=== PATIENT | male | born 1990 | race Caucasian/White ===

== ENCOUNTER 2017-12-16 02:55 | Emergency (ER) | payer OTHER ==
[2017-12-16] MEDS ORDERED: Doxycycline 100 MG Tab PO ONE (02:56)
[2017-12-16 03:06] VITALS: BP 141/94
--- NOTE | 2017-12-18 08:36 | ER ---
DATE SEEN: 12/16/2017 REASON FOR VISIT: Nose pain. HISTORY OF PRESENT ILLNESS: This is a 27-year-old male complaining about lesions in the nose. He has noted in the last 2 weeks, they are painful, moderate to severe, and the nose is dry. He denies any headache, fever, or chills. PAST MEDICAL HISTORY: No active medical problems. ALLERGIES: Venom-honey bee, wool, and Tide. SOCIAL HISTORY: Smoker. PHYSICAL EXAMINATION: GENERAL: He is afebrile. Blood pressure 141/94. EARS, NOSE, AND THROAT: Revealed crusty lesions in the nasal mucosa. NECK: Supple. CHEST: Clear. Oropharynx is normal. IMPRESSION: Nasal infection. PLAN: Doxycycline 100 mg b.i.d. TIME SEEN: 0300 hours in the morning. /[id number] DANGELO/RADHA
== END 2017-12-16 03:20 | disposition home or self-care (01) ==
LOC: FB.ED 02:55
DX: J32.9 Chronic sinusitis, unspecified (principal); F17.200 Nicotine dependence, unspecified, uncomplicated; Z91.030 Bee allergy status; Z91.09 Other allergy status, other than to drugs and biological substances
CPT/HCPCS: 99282; A9270

== ENCOUNTER 2018-06-16 18:51 | Emergency (ER) | payer BC, OTHER ==
[2018-06-16 19:20] VITALS: BP 125/73
--- NOTE | 2018-06-16 19:23 | EDM.PDOC ---
ED HPI GENERAL MEDICAL PROBLEM - General Chief Complaint: Allergic Reaction Stated Complaint: rash Time Seen by Provider: 06/16/18 19:00 Source of Information: Reports: Patient, Family History Limitations: Reports: No Limitations - History of Present Illness INITIAL COMMENTS - FREE TEXT/NARRATIVE: Ricky comes into [facility] ED with appearance of a puritic eruption of the hands today, significance unknown. He was diagnosed with H zoster of the L lower leg about 2 weeks ago and treated with Valtrex 500 mg tid, although he was only taking the meds once daily. His leg rash has slowly dried up, leaving some debris and scaling at the site, with mild itching. Current eruption of the hands seems dry, bumpy, and more intensely itchy. In addition, a few similar papules have appear on both feet. There are no vesicular features, and the papules are not erythematous. He is not reporting any systemic sxs of headache, sore throat, swollen lymph nodes, loss of appetite, or voiding sxs. He has tried no meds. - Related Data Allergies Allergy/AdvReac Type Severity Reaction Status Date / Time venom-honey bee Allergy Hives Verified 12/16/17 03:02 [bee venom (honey bee)] tide Allergy Hives Uncoded 12/16/17 03:02 wool Allergy Hives Uncoded 12/16/17 03:02 Home Meds: Home Meds Omeprazole 20 mg PO DAILY 07/20/13 [History] Mirtazapine [Remeron] 15 mg PO BEDTIME 12/16/17 [History] Past Medical History - Past Health History Medical/Surgical History: Denies Medical/Surgical History - Past Surgical History Other Musculoskeletal Surgeries/Procedures:: knee surgery, stitches Social & Family History - Family History Family Medical History: Noncontributory - Caffeine Use Caffeine Use: Reports: Coffee, Soda ED ROS ALLERGIC REACTION - Review of Systems Review Of Systems: See Below Constitutional: Reports: No Symptoms HEENT: Reports: No Symptoms Respiratory: Reports: No Symptoms Cardiovascular: Reports: No Symptoms Endocrine: Reports: No Symptoms GI/Abdominal: Reports: No Symptoms : Reports: No Symptoms Musculoskeletal: Reports: No Symptoms Skin: Reports: Pruritis, Rash Neurological: Reports: No Symptoms Psychiatric: Reports: No Symptoms Hematologic/Lymphatic: Reports: No Symptoms Immunologic: Reports: No Symptoms ED EXAM GENERAL NO PERIP PULSE - Physical Exam Exam: See Below Exam Limited By: No Limitations General Appearance: Alert, WD/WN, No Apparent Distress Eye Exam: Bilateral Eye: EOMI, Normal Inspection, PERRL Ears: Normal External Exam Nose: Normal Inspection Throat/Mouth: Normal Inspection, Normal Lips, Normal Gums, Normal Oropharynx, Normal Voice, No Airway Compromise Head: Normocephalic Neck: Normal Inspection, Supple, Non-Tender, Full Range of Motion Respiratory/Chest: Lungs Clear, Normal Breath Sounds Cardiovascular: Regular Rate, Rhythm, No Murmur GI/Abdominal: Normal Bowel Sounds, Soft, Non-Tender, No Organomegaly, No Distention, No Mass (Male) Exam: Normal Inspection Rectal (Males) Exam: Normal Exam Back Exam: Normal Inspection Extremities: Other (papular eruption of the digits and palms, nonconfluent, without erythema; a few papules seen on the plantar surfaces of both feet) Neurological: Alert, Oriented, CN II-XII Intact, Normal Cognition, No Motor/ Sensory Deficits Psychiatric: Normal Affect, Normal Mood Skin Exam: Warm, Dry, Intact, Rash, Zoster-Like Rash (dried slightly scaling dermatoses of the L calve and L anteromedial lower leg; no ulcerations or dysesthesias) Lymphatic: No Adenopathy Course - Vital Signs Text/Narrative:: The CBC noted &% Eos with normal WBC and hemogram. The UA was neg. 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 Last Recorded V/S: Last Vital Signs Temp Pulse 89 06/16/18 19:00 Resp 16 06/16/18 19:00 BP 125/73 06/16/18 19:00 Pulse Ox 98 06/16/18 19:00 - Orders/Labs/Meds Orders: Active Orders 24 hr Category Date Time Status URINALYSIS W/MICROSCOPIC [UA W/MICROSCOPIC] [URIN] Stat Lab 06/16/18 19:20 Ordered Labs: Laboratory Tests 06/16/18 06/16/18 Range/Units 19:20 19:35 WBC 8.6 (4.5-12.0) X10-3/uL RBC 5.09 (4.30-5.75) x10(6)uL Hgb 15.1 (11.5-15.5) g/dL Hct 43.4 (30.0-51.3) % MCV 85.4 (80-96) fL MCH 29.6 (27.7-33.6) pg MCHC 34.7 (32.2-35.4) g/dL RDW 12.8 (11.5-15.5) % Plt Count 306 (125-369) X10(3)uL MPV 7.6 (7.4-10.4) fL Neut % (Auto) 59.9 (46-82) % Lymph % (Auto) 25.0 (13-37) % [place] % (Auto) 6.9 (4-12) % Eos % (Auto) 7 H (1.0-5.0) % Baso % (Auto) 1 (0-2) % Neut # (Auto) 5.2 (1.6-8.3) # Lymph # (Auto) 2.1 (0.6-5.0) # [place] # (Auto) 0.6 (0.0-1.3) # Eos # (Auto) 0.6 (0.0-0.8) # Baso # (Auto) 0.1 (0.0-0.2) # Urine Color Yellow (YELLOW) Urine Appearance Clear (CLEAR) Urine pH 5.0 (5.0-6.5) Ur Specific [place] 1.030 H (1.010-1.025) Urine Protein Trace (NEGATIVE) mg/dL Urine Glucose (UA) Normal (NEGATIVE) mg/dL Urine Ketones Negative (NEGATIVE) mg/dL Urine Occult Blood Negative (NEGATIVE) Urine Nitrite Negative (NEGATIVE) Urine Bilirubin Small H (NEGATIVE) Urine Urobilinogen 1 H (NEGATIVE) mg/dL Ur Leukocyte Esterase Negative (NEGATIVE) Urine RBC 0-5 (0) Urine WBC 0-5 (0) Ur Squamous Epith Cells Occasional (NS,R,O) Urine Bacteria Rare H (NS) Urine Mucus Many H (NS) Departure - Departure Time of Disposition: 20:05 Disposition: Home, Self-Care 01 Condition: Good Clinical Impression: Acute papular eruption of skin - Discharge Information *PRESCRIPTION DRUG MONITORING PROGRAM REVIEWED*: Not Applicable *COPY OF PRESCRIPTION DRUG MONITORING REPORT IN PATIENT KIM: Not Applicable Referrals: Cosmo Pedroza MD [Primary Care Provider] - Forms: ED Department Discharge - Problem List & Annotations (1) Acute papular eruption of skin SNOMED Code(s): 636622410 Code(s): R21 - RASH AND OTHER NONSPECIFIC SKIN ERUPTION Status: Acute Current Visit: Yes Annotation/Comment:: Probable papular urticaria, managed with antihistamines such as Zyrtec 10 mg q day. No restrictions. He can discontinue the Valtrex tabs. - Problem List Review Problem List Initiated/Reviewed/Updated: Yes - My Orders Last 24 Hours: My Active Orders 06/16/18 19:20 URINALYSIS W/MICROSCOPIC [UA W/MICROSCOPIC] [URIN] Stat - Assessment/Plan Last 24 Hours: My Active Orders 06/16/18 19:20 URINALYSIS W/MICROSCOPIC [UA W/MICROSCOPIC] [URIN] Stat Plan: Follow up with PCP if needed.
== END 2018-06-16 20:15 | disposition home or self-care (01) ==
LOC: FB.ED 18:51
DX: R21 Rash and other nonspecific skin eruption (principal); Z91.030 Bee allergy status; Z91.09 Other allergy status, other than to drugs and biological substances; Z79.899 Other long term (current) drug therapy
CPT/HCPCS: 36415; 81001; 85025; 99282

== ENCOUNTER 2022-06-03 06:20 | Emergency (ER) | payer SELFPAY ==
[2022-06-03] MEDS: Naloxone 0.4 MG/ML SDV IVPUSH ONE (06:40)
[2022-06-03] MEDS: Ondansetron 4 MG Tab.DIS PO ONE (06:47)
[2022-06-03] MEDS: Sodium Chloride 0.9% 1,000 ML IV ONE (06:55)
[2022-06-03] MEDS: Ondansetron 4 MG Tab.DIS ONE (07:06)
[2022-06-03 07:18] LABS: ESTIMATED GFR 64 mL/min (>60)
[2022-06-03 08:21] VITALS: BP 133/64; PULSE 126
== END 2022-06-03 08:15 | disposition home or self-care (01) ==
LOC: FB.ED 06:20
DX: K75.9 Inflammatory liver disease, unspecified (principal); F15.129 Other stimulant abuse with intoxication, unspecified; R51.9 Headache, unspecified; E86.0 Dehydration; R00.0 Tachycardia, unspecified; D72.829 Elevated white blood cell count, unspecified; Z91.030 Bee allergy status; Z91.048 Other nonmedicinal substance allergy status; Z79.899 Other long term (current) drug therapy
CPT/HCPCS: 36415; 80053; 80307; 85025; 96361; 96374; 99284; J2310; J7030; Q0162

== ENCOUNTER 2022-07-10 20:53 | Emergency (ER) | payer SELFPAY ==
[2022-07-10] MEDS ORDERED: Doxycycline 100 MG Tab PO ONE (21:34)
[2022-07-10 22:07] VITALS: BP 152/96; PULSE 91
== END 2022-07-10 22:30 | disposition home or self-care (01) ==
LOC: FB.ED 20:53
DX: L03.90 Cellulitis, unspecified (principal); A49.02 Methicillin resistant Staphylococcus aureus infection, unspecified site; Z91.030 Bee allergy status; Z91.048 Other nonmedicinal substance allergy status; Z72.0 Tobacco use
CPT/HCPCS: 87070; 99283; A9270

== ENCOUNTER 2023-03-05 13:27 | Emergency (ER) | payer MEDICAID ==
[2023-03-05 15:08] VITALS: BP 140/92; PULSE 96
== END 2023-03-05 14:38 | disposition home or self-care (01) ==
LOC: FB.ED 13:27
DX: S90.31XA Contusion of right foot, initial encounter (principal); Z91.030 Bee allergy status; Z91.048 Other nonmedicinal substance allergy status; W20.8XXA Other cause of strike by thrown, projected or falling object, initial encounter
CPT/HCPCS: 73630-RT; 99283

== ENCOUNTER 2024-01-11 20:10 | Emergency (ER) | payer SELFPAY ==
[2024-01-11 20:27] VITALS: BP 135/82; PULSE 74
[2024-01-11] MEDS: Cephalexin 500 MG Cap PO ONE (20:46)
[2024-01-11] MEDS: Diphtheria,Pertussis(Acell),Tetanus Vaccine 0.5 ML Syringe IM ONE (20:46)
== END 2024-01-11 21:02 | disposition home or self-care (01) ==
LOC: FB.ED 20:10
DX: S61.431A Puncture wound without foreign body of right hand, initial encounter (principal); Z23 Encounter for immunization; Z91.030 Bee allergy status; Z88.8 Allergy status to other drugs, medicaments and biological substances; Z91.048 Other nonmedicinal substance allergy status; Z79.899 Other long term (current) drug therapy; W20.8XXA Other cause of strike by thrown, projected or falling object, initial encounter
CPT/HCPCS: 90471; 90715; 99283-25; A9270-GY

== ENCOUNTER 2025-07-14 09:06 | Emergency (ER) | payer SELFPAY ==
[2025-07-14 09:59] VITALS: BP 131/82; PULSE 87
== END 2025-07-14 09:45 | disposition home or self-care (01) ==
LOC: FB.ED 09:06
DX: S81.811A Laceration without foreign body, right lower leg, initial encounter (principal); Z91.030 Bee allergy status; Z91.048 Other nonmedicinal substance allergy status; Z88.8 Allergy status to other drugs, medicaments and biological substances; Z79.899 Other long term (current) drug therapy; W20.8XXA Other cause of strike by thrown, projected or falling object, initial encounter; Y93.89 Activity, other specified
CPT/HCPCS: 12001; 99282